=== PATIENT | female | born 1975 | race Caucasian/White ===

== ENCOUNTER 2020-07-08 12:07 | Outpatient (CLI) | payer BC ==
--- NOTE | 2020-07-08 19:38 | RAD ---
CERVICAL SPINE FIVE VIEWS: 07/08/20 There is loss of the normal cervical lordosis which may be due to muscle spasm. The C1 to dens distan ce is normal and the soft tissues are normal in thickness. The disc spaces seem normal in height. Obl ique views showed the neural foramina to be patent with no gross stenosis evident. IMPRESSION: Straightening of the cervical spine, otherwise negative study. POS: HOME
--- NOTE | 2020-07-08 19:40 | RAD ---
LUMBAR SPINE THREE VIEWS: 07/08/20 A degenerated disc is evident at L5-S1 and there is also slight disc space narrowing at L4-L5. Osteop hytes are seen in the lower lumbar spine. No fracture or dislocation was present. The SI joints appea r normal. IMPRESSION: Degenerative changes with evidence of degenerative disc disease at L5-S1. Cross-sectional imaging arin ht be helpful in this patient. POS: HOME
== END 2020-07-08 12:08 | disposition home or self-care (01) ==
LOC: BURRAD 12:07
PROVIDERS: ATTEND Clinical Nurse Specialist Medical-Surgical
DX: M54.41 Lumbago with sciatica, right side (principal); M54.2 Cervicalgia; M51.37 Other intervertebral disc degeneration, lumbosacral region; M47.817 Spondylosis without myelopathy or radiculopathy, lumbosacral region
CPT/HCPCS: 72050; 72100